=== PATIENT | female | born 1965 | race Caucasian/White ===

== ENCOUNTER 2017-08-21 17:08 | Emergency (ER) | payer OTHER ==
[~2017-08-21] VITALS: Ht 172.7 cm; Wt 88.6 kg
[~2017-08-21 17:08] MED LIST: CATAPRES0.1 MG PO; CENTRUM SILVER1 EAC4 PO; EXFORGE HCT 101 EAC2 PO; HYDROCHLOROTH12.5 M3 PO; IBUPROFEN800 MG PO; MEGACE20 MG PO; XANAX0.25 MG PO; ZOLOFT100 MG PO
[2017-08-21 18:17] LABS: HEMATOCRIT 40.7 % (36.0-46.0); HEMOGLOBIN 14.3 G/DL (11.9-15.5); MCH 31.2 PG (29.0-34.0); MCHC 35.1 G/DL (30.0-36.0); MCV 88.9 FL (83-99); PLATELET COUNT 256 K/uL (156-360); RBC DIS.WIDTH-CV 12.9 % (11.8-14.6); RBC DIS.WIDTH-SD 41.4 % (39-53); RED BLOOD COUNT 4.58 M/uL (3.80-5.20); WHITE BLOOD COUNT 9.7 K/uL (4.1-10.2)
[2017-08-21 18:26] LABS: CHLORIDE 107 mEq/L (99-109); SODIUM 140 mEq/L (136-147)
[2017-08-21 18:28] LABS: GLUCOSE 93 mg/dL (70-99)
[2017-08-21 18:31] LABS: CREATININE 0.7 mg/dL (0.6-1.3); GFR ESTIMATE (CALCULATED) > 59 mL/min/
[2017-08-21 18:32] LABS: UREA NITROGEN (BUN) 10 mg/dL (9-23)
[2017-08-21 22:31] LABS: APPEARANCE HAZY/YELLOW; RED CELL COUNT 1000 /MM^3 (0-1)
[2017-08-21 22:32] LABS: MONONUCLEAR WBC'S 16 %; POLYNUCLEAR WBC'S 82 % (0-25); SYNOVIAL FLUID EOSINOPHILS 2 % (0-25); WHITE CELL COUNT 5980 /MM^3 (0-200.0)
[2017-08-21] MEDS ORDERED: PERCOCET 5/31 TABLET PO (22:50)
[2017-08-21] MEDS ORDERED: MOTRIN800 MG PO (22:50)
[2017-08-21 23:22] VITALS: BP 155/89
[2017-08-22 06:55] LABS: CRYSTALS NO CRYSTALS SEEN
== END 2017-08-21 23:25 | disposition home or self-care (01) ==
LOC: EME 17:08
PROVIDERS: Nurse Practitioner Family
DX: M25.40 Effusion, unspecified joint (principal); M19.90 Unspecified osteoarthritis, unspecified site
CPT/HCPCS: 73564; 80048; 85027; 87205; 89051; 89060; 99281; 99285